=== PATIENT | female | born 1985 | race African-American/Black ===

== ENCOUNTER 2022-09-25 07:13 | Day surgery (SDC) | payer OTHER ==
[2022-09-24 09:54] VITALS: BMI 36.1
[2022-09-25] MEDS ORDERED: Lidocaine 2% MPF 10 ML AMP (For Epidural Use) ONE (07:48)
[2022-09-25] MEDS ORDERED: PROPOFOL 60 ML ONE (07:48)
[2022-09-25] MEDS ORDERED: PROPOFOL 20 ML ONE (10:32)
== END 2022-09-25 11:20 | disposition home or self-care (01) ==
LOC: CSHSDC 07:13
PROVIDERS: ATTEND Internal Medicine Gastroenterology
PROC: 0DBL8ZZ Excision of Transverse Colon, Via Natural or Artificial Opening Endoscopic (ICD-10-PCS; principal; 2022-09-25)
DX: Z12.11 Encounter for screening for malignant neoplasm of colon (principal); D12.3 Benign neoplasm of transverse colon; K64.9 Unspecified hemorrhoids; I10 Essential (primary) hypertension; Z87.891 Personal history of nicotine dependence
CPT/HCPCS: 88305; J2704

== ENCOUNTER 2024-11-07 15:20 | Emergency (ER) | payer BC, OTHER ==
[2024-11-07] MEDS ORDERED: Acetaminophen 325 MG TAB ONE (15:56)
[2024-11-07] MEDS ORDERED: Ibuprofen 200 MG TAB ONE (15:56)
== END 2024-11-07 16:56 | disposition home or self-care (01) ==
LOC: CSHERS 15:20
DX: S16.1XXA Strain of muscle, fascia and tendon at neck level, initial encounter (principal); M25.572 Pain in left ankle and joints of left foot; M54.50 Low back pain, unspecified; I10 Essential (primary) hypertension; V43.52XA Car driver injured in collision with other type car in traffic accident, initial encounter; Y93.89 Activity, other specified
CPT/HCPCS: 72100; 99283

== ENCOUNTER 2025-08-29 14:18 | Outpatient (CLI) | payer BC, OTHER | END 2025-08-29 14:19 | disposition home or self-care (01) | LOC: CSHMAMMO 14:18 | PROVIDERS: ATTEND Internal Medicine | DX: Z12.31 Encounter for screening mammogram for malignant neoplasm of breast (principal); Z80.3 Family history of malignant neoplasm of breast; N64.89 Other specified disorders of breast; R92.333 Mammographic heterogeneous density, bilateral breasts | CPT/HCPCS: 77063; 77067 ==